=== PATIENT | male | born 1985 | race Caucasian/White ===

== ENCOUNTER 2022-05-05 10:32 | Emergency (ER) | payer OTHER ==
[~2022-05-05] VITALS: Ht 177.8 cm; Wt 68.0 kg
--- NOTE | 2022-05-05 10:35 | NUR ---
LEFT SIDED CHEST PRESSURE X 2 DAYS WORST TODAY, RADIATED TO BACK. PT STATED THE PRESSURE COMES AND GOES, DENIES HEADACHE, NAUSEA, VOMITING ATTACHED TO MONITOR. VITALS ARE WITHIN NORMAL LIMITS, NO RESP DISTRESS NOTED. WARM BLANKET PROVIDED FOR COMFORT.
--- NOTE | 2022-05-05 10:48 | NUR ---
IV ESTABLISHED L AC 18G LABS DRAWN AND SENT TO LAB
--- NOTE | 2022-05-05 10:53 | NUR ---
DR MARK AT BEDSIDE FOR EVAL
[2022-05-05] MEDS ORDERED: ASPIRIN 325 MG TABLET PO ONE (11:00)
[2022-05-05] MEDS ORDERED: ASPIRIN 325 MG TABLET ONE (11:11)
[2022-05-05 11:13] LABS: CALCIUM, SERUM 8.5 mg/dL (8.5-10.1); CARBON DIOXIDE 29 mmol/L (21-32); CHLORIDE 106 mmol/L (98-107); CREATININE 0.8 mg/dL (0.6-1.3); GLUCOSE 91 mg/dL (74-106); POTASSIUM 4.2 mmol/L (3.5-5.1); SODIUM SERUM 141 mmol/L (136-145); UREA NITROGEN, BLOOD 13 mg/dL (7-18)
[2022-05-05 11:24] LABS: BASOPHILS % (AUTO) 0.6 % (0.0-2.0); EOSINOPHILS % (AUTO) 1.4 % (0.0-6.0); HEMATOCRIT 40 % (39-51); HEMOGLOBIN 13.2 g/dL (13.5-17.5); LYMPHOCYTES # (AUTO) 1.7 K/uL (0.8-4.8); LYMPHOCYTES % (AUTO) 31.5 % (20.0-44.0); MEAN CORPUSCULAR HGB CONC 33 g/dl (31.0-36.0); MEAN CORPUSCULAR VOLUME 88 fL (80-96); MONOCYTES # (AUTO) 0.3 K/uL (0.1-1.30); MONOCYTES % (AUTO) 6.4 % (2.0-12.0); NEUTROPHILS # (AUTO) 3.2 K/uL (1.8-8.9); NEUTROPHILS % (AUTO) 60.1 % (43.0-81.0); PLATELET COUNT (AUTO) 217 K/uL (150-450); RED BLOOD CELL COUNT(AUTO) 4.52 MIL/uL (4.5-6.0); WHITE BLOOD COUNT (AUTO) 5.3 K/uL (4.3-11.0)
--- NOTE | 2022-05-05 14:06 | NUR ---
COVID SWAB COLLECTED AND SENT TO LAB.
--- NOTE | 2022-05-05 16:32 | NUR ---
AT BEDSIDE W/ PATIENT
[2022-05-05 17:15] VITALS: BP 120/77
--- NOTE | 2022-05-05 17:16 | NUR ---
Patient does not wish to proceed with medical care recommended by Dr. Wyatt. Patient given information related to possible complications, up to and including , which could occur as a result of leaving the hospital at this time. Patient verbalizes understanding of risks involved due to leaving against medical advice. Patient has signed AMA form.
== END 2022-05-05 17:16 | disposition left against medical advice (07) ==
LOC: ER 10:43
DX: R07.89 Other chest pain (principal); F17.200 Nicotine dependence, unspecified, uncomplicated
CPT/HCPCS: 36415; 71045-TC; 80048-TC; 83880; 84484-TC; 85025-TC